=== PATIENT | male | born 1935 | race Caucasian/White ===

== ENCOUNTER 2018-12-30 12:42 | Emergency (ER) | payer SELFPAY ==
[~2018-12-30] VITALS: Ht 162.6 cm; Wt 76.7 kg
[2018-12-30 13:07] VITALS: BP 184/98
[2019-01-01 00:08] LABS: Lyme Disease IgG/IgM Antibodie <0.91 ISR (0.00-0.90); Lyme Disease IgM Ab Quantitati <0.80 index (0.00-0.79)
== END 2018-12-30 13:59 | disposition home or self-care (01) ==
LOC: M ED 12:42
DX: R53.81 Other malaise (principal); Z20.828 Contact with and (suspected) exposure to other viral communicable diseases; Z87.891 Personal history of nicotine dependence